=== PATIENT | male | born 1965 | race African-American/Black ===

== ENCOUNTER 2017-04-26 17:04 | Emergency (ER) | payer MEDICAID ==
[~2017-04-26] VITALS: Ht 167.6 cm; Wt 80.0 kg
[2017-04-26] MEDS: IBUPROFEN 600MG TABLET PO ONE (23:09)
[2017-04-26 23:57] LABS: HEMATOCRIT. 41.8 % (42.0-52.0); HEMOGLOBIN. 14.3 g/dL (14.0-18.0); MEAN CORPUSCULAR HEMOGLOBIN 29.5 pg (28.0-32.0); MEAN CORPUSCULAR VOLUME 86.3 fL (80.0-94.0); MEAN PLATELET VOLUME 7.1 fl (7.4-10.4); PLATELET 266 x1000/uL (130-400); RED BLOOD CELL COUNT 4.84 mill/uL (4.7-6.1); RED CELL DISTRIBUTION WIDTH 13.6 % (11.6-14.6)
[2017-04-27 01:26] LABS: PLATELET ESTIMATE NORMAL
[2017-04-27 02:36] VITALS: BP 123/82
== END 2017-04-27 03:13 | disposition home or self-care (01) ==
LOC: ER 17:04
DX: J32.9 Chronic sinusitis, unspecified (principal); R05 Cough; Z90.49 Acquired absence of other specified parts of digestive tract
CPT/HCPCS: 36415; 70450; 71010; 85025; 99285